=== PATIENT | female | born 1960 | race Caucasian/White ===

== ENCOUNTER 2021-10-26 16:08 | Emergency (ER) | payer MEDICARE | END 2021-10-26 21:00 | disposition home or self-care (01) | LOC: JD.ED 16:08 | DX: N39.0 Urinary tract infection, site not specified (principal); R41.0 Disorientation, unspecified; R26.9 Unspecified abnormalities of gait and mobility; E05.90 Thyrotoxicosis, unspecified without thyrotoxic crisis or storm; E66.9 Obesity, unspecified; Z68.30 Body mass index [BMI] 30.0-30.9, adult; Z88.0 Allergy status to penicillin; Z72.0 Tobacco use | CPT/HCPCS: 36415; 70450; 70450-26; 80053; 81001; 83735; 85025; 87086; 87088; 87186; 93005; 93010; 99283; 99285-25 ==